=== PATIENT | male | born 1985 | race Two or more races ===

== ENCOUNTER 2024-05-27 23:32 | Emergency (ER) | payer MEDICAID, OTHER ==
[~2024-05-27] VITALS: Ht 175.3 cm; Wt 88.0 kg
--- NOTE | 2024-05-28 00:30 | ED.PDOC ---
History of Present Illness HPI Comments 38 y/o M, with a history of polysubstance abuse, is BIBA for c/o overdose, today. Per EMS report, bystanders called after finding the patient altered and becoming unresponsive behind a gas station, earlier, this evening. He was commented to have been found, initially, on scene with agonal breathing and pinpoint pupils after said bystanders administered 2x doses of 4mg Narcan IN prior to EMS arrival. En route, patient received an additional 2mg Narcan (10mg total), with positive response. Patient is reported to alert, now, and admits to fentanyl use at time of initial assessment only. Denies any chest pain, shortness of breath, nausea, vomiting, or other associated symptoms or modifiers at this time. Chief Complaint: Overdose Time Seen by MD: 23:45 Reviewed Notes: Nurses Notes, Medications, Allergies Information Source: Patient, Emergency Med Personnel Mode of Arrival: EMS Severity: Moderate Timing: Hours Duration: Minutes Prehospital treatment: 12 Lead EKG, Accucheck, Occupational Therapy Director, Other (narcan 10mg total ) Past Medical History PAST MEDICAL HISTORY: Denies Surgical History: Denies all surgeries Family History Family History: Unknown Social History Smoker: Non-Smoker Alcohol: Heavy Drugs: Other (fentanyl ) Lives In: Homeless Neurological: reports: others (ALOC s/o overdose ) All Other Systems: Reviewed and Negative (negative unless otherwise stated above or in HPI) Physical Exam General Appearance: No Apparent Distress, Normal, Other (lethargic but arousable to voise; GCS15) HEENT: Normal ENT Inspection, Pharynx Normal, TMs Normal Neck: Full Range of Motion, Non-Tender, Normal, Normal Inspection Respiratory: Chest Non-Tender, Lungs Clear, No Accessory Muscle Use, No Respiratory Distress, Normal Breath Sounds Cardiovascular: No Edema, No JVD, No Murmur, No Gallop, Normal Peripheral Pulses, Regular Rate/Rhythm Breast Exam: Deferred Gastrointestinal: No Organomegaly, Non Tender, No Pulsatile Mass, Normal Bowel Sounds, Soft Genitalia: Deferred Pelvic: Deferred Rectal: Deferred Extremities: No calf tenderness, Normal capillary refill, Normal inspection, Normal range of motion, Non-tender, No pedal edema Musculoskeletal : Apperance: Normal Neurologic: Alert, performance test consultant II-XII nml as Tested, No Motor Deficits, Other (lethargic but arousable to voise; GCS15) Cerebellar Function: Normal Reflexes: Normal Skin: Dry, Normal Color, Warm Lymphatic: No Adenopathy Was a procedure done? Was a procedure done?: No EKG EKG : Pulse Rate (adult): 98 [place]: Normal Cardiac Rhythm: NSR Block: None Hypertrophy: None ST: Normal Differential Dx Considerations may include: polysubstance abuse and dependency, substance overdose, encephalopathy, electrolyte imbalance X-Ray, Labs, Meds, VS Vital Signs Date Time Temp Pulse Resp B/P (MAP) Pulse Ox O2 Delivery O2 Flow Rate FiO2 05/28/24 03:11 60 16 95 Room Air* 0 21 05/28/24 03:07 97.9 60 16 113/59 (77) 97.9 05/28/24 00:30 98 05/27/24 23:35 98 05/27/24 23:32 98.7 85 16 116/67 (83) 95 Lab Test 05/28/24 00:00 Range/Units White Blood Count 7.8 4.4-10.8 10^3/uL Red Blood Count 4.90 4.5-5.90 10^6/uL Hemoglobin 14.9 13.5-17.5 g/dL Hematocrit 44.4 41.0-53.0 % Mean Corpuscular Volume 90.5 80.0-100.0 fL Mean Corpuscular Hemoglobin 30.3 28.0-32.0 pg Mean Corpuscular Hemoglobin Concent 33.5 32.0-36.0 g/dL Red Cell Distribution Width 13.1 11.8-14.3 % Platelet Count 268 140-450 10^3/uL Mean Platelet Volume 7.9 6.9-10.8 fL Neutrophils (%) (Auto) 49.1 37.0-80.0 % Lymphocytes (%) (Auto) 37.8 10.0-50.0 % Monocytes (%) (Auto) 8.7 0.0-12.0 % Eosinophils (%) (Auto) 4.1 0.0-7.0 % Basophils (%) (Auto) 0.3 0.0-2.0 % Neutrophils # (Auto) 3.8 1.6-8.6 10 ^3/uL Lymphocytes # (Auto) 2.9 0.4-5.4 10 ^3/uL Monocytes # (Auto) 0.7 0-1.3 10 ^3/uL Eosinophils # (Auto) 0.3 0-0.8 10 ^3/uL Basophils # (Auto) 0 0-0.2 10 ^3/uL Nucleated Red Blood Cells 0.1 % Sodium Level 141 136-145 mmol/L Potassium Level 3.9 3.5-5.1 mmol/L Chloride Level 101 98-107 mmol/L Carbon Dioxide Level 31 20-31 mmol/L Anion Gap 9 5-15 Blood Urea Nitrogen 21 9-23 mg/dL Creatinine 1.02 0.700-1.30 mg/dL Glomerular Filtration Rate Calc 97 >90 mL/min BUN/Creatinine Ratio 20.6 H 10.0-20.0 Serum Glucose 110 H 74-106 mg/dL Calcium Level 10.1 8.7-10.4 mg/dL Total Bilirubin 0.2 0.2-1.0 mg/dL Aspartate Amino Transferase (AST) 42 H 13-40 U/L Alanine Aminotransferase (ALT) 34 7-40 U/L Alkaline Phosphatase 83 46-116 U/L Total Protein 6.9 5.7-8.2 g/dL Albumin 4.6 3.2-4.8 g/dL Salicylates Level < 3.0 -30 mg/dL Acetaminophen Level < 2.0 L 10.0-20.0 UG/ML Plasma/Serum Blood Alcohol < 3.0 <10 mg/dL Time of 1ST Reevaluation: 00:15 Reevaluation 1ST: Unchanged Time of 2ND Reevaluation: 00:30 Reevaluation 2ND: Improved Patient Education/Counseling: Diagnosis, Treatment Family Education/Counseling: No Family Present Departure 1 Departure Time of Disposition: 00:30 Impression: Primary Impression: Fentanyl adverse reaction Disposition: 01 HOME / SELF CARE / HOMELESS Condition: Stable Discharged With: Self Critical Care Note Critical Care Time?: No Stability Stability form required: No Heart Score Heart Score: Heart Score Response (Comments) Value History N/A 0 EKG N/A 0 Age N/A 0 Risk Factors N/A 0 Troponin N/A 0 Total 0 I personally scribed for REINA MARTINEZ MD ([email or web address]) on 05/28/24 at 00:30. Electronically submitted by Rashi Tripp [email or web address]). REINA MARTINEZ MD May 28, 2024 00:30
[2024-05-28 00:44] LABS: Alanine Aminotransferase 34 U/L (7-40); Albumin 4.6 g/dL (3.2-4.8); Alkaline Phosphatase 83 U/L (46-116); Anion Gap 9 (5-15); BUN/Creatinine Ratio 20.6 (10.0-20.0); Blood Urea Nitrogen 21 mg/dL (9-23); Calcium 10.1 mg/dL (8.7-10.4); Chloride 101 mmol/L (98-107); Potassium 3.9 mmol/L (3.5-5.1); Sodium 141 mmol/L (136-145)
[2024-05-28 00:45] LABS: Total Protein 6.9 g/dL (5.7-8.2)
[2024-05-28 00:58] LABS: Basophils # (auto) 0 10 ^3/uL (0-0.2); Basophils % (auto) 0.3 % (0.0-2.0); Eosinophils # (auto) 0.3 10 ^3/uL (0-0.8); Eosinophils % (auto) 4.1 % (0.0-7.0); Hematocrit 44.4 % (41.0-53.0); Hemoglobin 14.9 g/dL (13.5-17.5); Lymphocytes # (auto) 2.9 10 ^3/uL (0.4-5.4); Lymphocytes % (auto) 37.8 % (10.0-50.0); Mean Corpuscular Hemoglobin 30.3 pg (28.0-32.0); Mean Corpuscular Hgb Conc. 33.5 g/dL (32.0-36.0); Mean Corpuscular Volume 90.5 fL (80.0-100.0); Monocytes # (auto) 0.7 10 ^3/uL (0-1.3); Monocytes % (auto) 8.7 % (0.0-12.0); Neutrophils # (auto) 3.8 10 ^3/uL (1.6-8.6); Neutrophils % (auto) 49.1 % (37.0-80.0); Nucleated Red Blood Cells % 0.1 %; Platelet Count (auto) 268 10^3/uL (140-450); Red Cell Distribution Width 13.1 % (11.8-14.3); White Blood Cell 7.8 10^3/uL (4.4-10.8)
[2024-05-28 01:14] LABS: Acetaminophen < 2.0 UG/ML (10.0-20.0); Aspartate Aminotransferase 42 U/L (13-40); Bilirubin, Total 0.2 mg/dL (0.2-1.0); Carbon Dioxide 31 mmol/L (20-31); Glucose 110 mg/dL (74-106); Salicylate < 3.0 mg/dL (-30)
[2024-05-28 01:41] LABS: Blood Alcohol < 3.0 mg/dL (<10)
[2024-05-28 03:07] VITALS: BP 113/59; TEMP 97.9
[2024-05-28 03:11] VITALS: PULSE 60; RESP 16; O2SAT 95
--- NOTE | 2024-05-28 10:26 | ECG ---
[facility] Test Date: 2024-05-27 Test Time: 23:35:20 Pat Name: KAT TEMPLETON Department: ED Room: Gender: M It Systems Administrator: WALTER : 1985 Requested By: REINA MARTINEZ Order Number: [id number] Reading MD: Measurements Intervals [place] Rate: 98 P: 46 GA: 148 QRS: 66 QRSD: 90 T: 44 QT: 361 QTc: 461 Interpretive Statements Sinus rhythm Please click the below link to view image of tracing.
== END 2024-05-28 03:55 | disposition home or self-care (01) ==
LOC: ER 23:32
DX: R40.4 Transient alteration of awareness (principal); T40.415A Adverse effect of fentanyl or fentanyl analogs, initial encounter; F10.90 Alcohol use, unspecified, uncomplicated; Z59.00 Homelessness unspecified; Y92.89 Other specified places as the place of occurrence of the external cause; Y90.0 Blood alcohol level of less than 20 mg/100 ml
CPT/HCPCS: 36415; 80053; 80320; 80329; 85025; 93005